=== PATIENT | male | born 1980 | race African-American/Black ===

== ENCOUNTER 2019-09-07 06:06 | Emergency (ER) | payer BC ==
[~2019-09-07] VITALS: Ht 191.8 cm; Wt 75.7 kg
[2019-09-07 06:15] VITALS: BP 145/95
--- NOTE | 2019-09-07 06:32 | PHYS DOC ---
Adult General Chief Complaint Chief Complaint: FLU SYMPTOM HPI HPI Patient is a 39 year old male with no significant PMH who presents with productive cough, congestion, and sore throat that began New Year's Vanesa. In addition, the patient has had intermittent nausea with one episode of diarrhea that occurred yesterday. Patient has not vomited. Patient has no shortness of breath, chest pain, or abdominal pain. he has no sinus pain or lymphadenopathy. Patient has been taking Pedialyte and NyQuil to help with his symptoms. His last dose of NyQuil was last night at approximately 8 PM. Review of Systems Review of Systems Constitutional: Denies fever or chills Eyes: Dry and injected conjunctiva, but no eye pain HENT: nasal congestion, sore throat, no ear pain. Respiratory: Reports productive cough, but no shortness of breath Cardiovascular: Denies chest pain or palpitations GI: Denies abdominal pain. nausea but no vomiting : Denies dysuria or hematuria Musculoskeletal: Denies back pain or joint pain Integument: Denies rash or skin lesions Neurologic: Reports mild headache, but no focal weakness or sensory changes Complete systems were reviewed and found to be within normal limits, except as documented in this note. Current Medications Current Medications Current Medications Medications (Trade) Dose Ordered Sig/Belén Start Time Stop Time Status Last Admin Dose Admin Dexamethasone (Decadron) 10 mg 1X ONCE 09/07/19 07:00 09/07/19 07:01 Allergies Allergies Allergies Coded Allergies Type Severity Reaction Last Updated Verified No Known Drug Allergies 09/07/19 No Physical Exam Physical Exam Constitutional: Well developed, well nourished, no acute distress, non-toxic appearance. [] HENT: Normocephalic, atraumatic, bilateral external ears normal, oropharynx moist, no oral exudates, nose normal. [] Eyes: PERRLA, EOMI, conjunctiva normal, no discharge. [] Neck: Normal range of motion, no tenderness, supple, no stridor. [] Cardiovascular:Heart rate regular rhythm, no murmur [] Lungs & Thorax: Bilateral breath sounds clear to auscultation [] Abdomen: Bowel sounds normal, soft, no tenderness, no masses, no pulsatile masses. [] Skin: Warm, dry, no erythema, no rash. [] Back: No tenderness, no CVA tenderness. [] Extremities: No tenderness, no cyanosis, no clubbing, ROM intact, no edema. [] Neurologic: Alert and oriented X 3, normal motor function, normal sensory function, no focal deficits noted. [] Psychologic: Affect normal, judgement normal, mood normal. [] Current Patient Data Vital Signs Vital Signs Date Time Temp Pulse Resp B/P (MAP) Pulse Ox O2 Delivery O2 Flow Rate FiO2 09/07/19 06:15 97.8 98 16 145/95 (112) 100 Room Air 97.8 EKG EKG [] Radiology/Procedures Radiology/Procedures [] Course & Med Decision Making Course & Med Decision Making Patient is a 39-year-old male with no past medical history presents with cough, congestion, sore throat, and nausea since New Year's evening. The patient had one episode of diarrhea yesterday. The patient is afebrile today and his lungs are clear. Patient has no tonsillar exudates or lymphadenopathy on exam. Patient was instructed on the futility of Tamiflu outside of the 48 hour period of onset. Patient given long-acting steroid to decrease inflammation and advised to use [id number] cold preparations to aid with symptom improvement. Patient stable for discharge with outpatient follow-up with PCP. Discussed findings and plan with patient, who acknowledges understanding and agreement. Dragon Disclaimer Dragon Disclaimer This electronic medical record was generated, in whole or in part, using a voice recognition dictation system. Departure Departure Impression: Primary Impression: Viral URI Additional Impressions: Nausea Diarrhea Disposition: HOME, SELF-CARE Condition: STABLE Referrals: NO PCP (PCP) Patient Instructions: Diarrhea, [id number], Diet for Diarrhea, Adult, Nausea, Adult, [id number], Upper Respiratory Infection, Adult, [id number] Additional Instructions: Use over the counter cold and cough remedies. Use humidifier at night. Problem Qualifiers Additional Impressions: Diarrhea Diarrhea type: unspecified type Qualified Codes: R19.7 - Diarrhea, unspecified CUCA FUNK DO Sep 07, 2019 06:32
[2019-09-07] MEDS ORDERED: DEXAMETHASONE 4 MG TABLET PO ONE (07:00)
== END 2019-09-07 06:51 | disposition home or self-care (01) ==
LOC: ER 06:06
DX: J06.9 Acute upper respiratory infection, unspecified (principal); B97.89 Other viral agents as the cause of diseases classified elsewhere; R11.0 Nausea; R19.7 Diarrhea, unspecified; R09.81 Nasal congestion
CPT/HCPCS: 99282; J8540